=== PATIENT | male | born 1965 | race Caucasian/White ===

== ENCOUNTER 2017-12-19 14:37 | Emergency (ER) | payer SELFPAY ==
[~2017-12-19] VITALS: Ht 170.2 cm; Wt 62.8 kg
[2017-12-19] MEDS ORDERED: PREDNISONE50 MG PO (15:14)
[2017-12-19] MEDS ORDERED: VALTREX1000 MG PO (15:14)
[2017-12-19 15:35] VITALS: BP 129/77
[2017-12-20 10:02] LABS: LYME DISEASE SEROLOGY SCREEN POSITIVE (NEGATIVE)
== END 2017-12-19 15:48 | disposition home or self-care (01) ==
LOC: EME 14:37
PROVIDERS: Emergency Medicine
DX: G51.0 Bell's palsy (principal); I10 Essential (primary) hypertension
CPT/HCPCS: 70450; 86617 90; 86618; 99281; 99285